=== PATIENT | female | born 1985 | race African-American/Black ===

== ENCOUNTER 2018-01-17 10:05 | Emergency (ER) | payer MEDICAID ==
--- NOTE | 2018-01-17 10:23 | ER Document Report ---
ED Medical Screen (RME) - General Chief Complaint: Abdominal Pain Stated Complaint: ABDOMINAL PAIN Time Seen by Provider: 01/17/18 10:21 Mode of Arrival: Ambulatory Information source: Patient Notes: 32-year-old female with no medical problems who presents to the emergency room with upper abdominal pain since this morning. Patient has not eaten today. She denies fever. She denies lower abdominal pain, vaginal discharge or vaginal bleeding Medicines: None Past medical history: None Allergies: None Past surgical history: Bilateral tubal ligation, TRAVEL OUTSIDE OF THE [place] IN LAST 30 DAYS: No - Related Data Allergies/Adverse Reactions: No Known Allergies Allergy (Verified 01/17/18 10:05) Past Medical History - Social History Chew tobacco use (# tins/day): No Frequency of alcohol use: None Drug Abuse: None Renal/ Medical History: Denies: Hx Peritoneal Dialysis Past Surgical History: Reports: Hx SectionComment Only: Hx Cholecystectomy - x 2 - Immunizations Hx Diphtheria, Pertussis, Tetanus Vaccination: Yes Physical Exam - Vital signs Vitals: Temp Pulse Resp BP Pulse Ox 98.2 F 82 16 141/88 H 99 01/17/18 10:10 01/17/18 10:10 01/17/18 10:10 01/17/18 10:10 01/17/18 10:10 Course - Vital Signs Vital signs: Temp Pulse Resp BP Pulse Ox 98.2 F 82 16 141/88 H 99 01/17/18 10:10 01/17/18 10:10 01/17/18 10:10 01/17/18 10:10 01/17/18 10:10 Doctor's Discharge - Discharge Referrals: GRAHAM CARROLL MD [Primary Care Provider] - Follow up as needed
[2018-01-17 10:52] LABS: ABSOLUTE LYMPHOCYTES (AUTO) 1.1 10^3/uL (0.5-4.7); ABSOLUTE MONOCYTES (AUTO) 0.2 10^3/uL (0.1-1.4); BASOPHILS % (AUTO) 0.4 % (0-2); HEMATOCRIT 40.1 % (36.0-47.0); HEMOGLOBIN 13.5 g/dL (12.0-15.5); MEAN CORPUSCULAR HGB CONC 33.7 g/dL (32.0-36.0); MEAN CORPUSCULAR VOLUME 83 fl (80-97); MONOCYTES % (AUTO) 2.9 % (3-13); PLATELET COUNT 347 10^3/uL (150-450); RED BLOOD COUNT 4.82 10^6/uL (3.72-5.28); RED CELL DISTRIBUTION WIDTH 15.1 % (11.5-14.0); SEGMENTED NEUTROPHILS % (AUTO) 81.7 % (42-78); TOTAL CELLS COUNTED % (AUTO) 100 %; WHITE BLOOD COUNT 7.4 10^3/uL (4.0-10.5)
[2018-01-17] MEDS ORDERED: MAG HYDROX/AL HYDROX/SIMETH SUSP 30 ML UDCUP PO ONE (11:07)
[2018-01-17] MEDS ORDERED: LIDOCAINE 2% VISCOUS SOLN 20 ML UDCUP PO ONE (11:07)
[2018-01-17] MEDS ORDERED: METOCLOPRAMIDE HCL ORAL SOLN 10 MG/10 ML UDCUP PO ONE (11:07)
[2018-01-17 11:09] LABS: APPEARANCE,URINE SLIGHTLY-CLOUDY; BILIRUBIN,URINE NEGATIVE (NEGATIVE); COLOR,URINE YELLOW; GLUCOSE, URINE NEGATIVE (NEGATIVE); KETONES,URINE NEGATIVE (NEGATIVE); LEUKOCYTE ESTERASE,URINE NEGATIVE (NEGATIVE); NITRITE,URINE NEGATIVE (NEGATIVE); PROTEIN,URINE NEGATIVE (NEGATIVE); URINE SPECIFIC GRAVITY 1.025; UROBILINOGEN,URINE NEGATIVE mg/dL (<2.0)
[2018-01-17 11:18] LABS: BLOOD UREA NITROGEN 7 mg/dL (7-20); CALCIUM 9.3 mg/dL (8.4-10.2); GLUCOSE 135 mg/dL (75-110)
[2018-01-17 11:19] LABS: ALANINE AMINOTRANSFERASE 25 U/L (9-52); ALBUMIN 4.4 g/dL (3.5-5.0); ALKALINE PHOSPHATASE 84 U/L (38-126); ANION GAP 14 (5-19); ASPARTATE AMINO TRANSFERASE 22 U/L (14-36); BILIRUBIN,DIRECT 0.2 mg/dL (0.0-0.4); BILIRUBIN,TOTAL 0.4 mg/dL (0.2-1.3); CARBON DIOXIDE 24 mmol/L (22-30); CHLORIDE 106 mmol/L (98-107); LIPASE 65.2 U/L (23-300); POTASSIUM 4.1 mmol/L (3.6-5.0); SODIUM 143.6 mmol/L (137-145); TOTAL PROTEIN 7.8 g/dL (6.3-8.2)
--- NOTE | 2018-01-17 11:20 | ER Document Report ---
ED General - General Chief Complaint: Abdominal Pain Stated Complaint: ABDOMINAL PAIN Time Seen by Provider: 01/17/18 10:21 Mode of Arrival: Ambulatory TRAVEL OUTSIDE OF THE [place] IN LAST 30 DAYS: No - HPI Notes: Patient is a 32-year-old female with no significant past medical history who presents to the ED complaining of epigastric pain, nausea without vomiting 2-3 months, but worsened last night. Patient states that food intake does make the pain worse, especially fried chicken per patient. The pain does not radiate. Patient states that she has not been eating or drinking anything this morning. She is urinating normally and having normal bowel movements. She has not had any vaginal discharge, odor, or bleeding. Denies any drug allergies. Denies any smoking or IV drug use. Denies any headache, fever, URI, sore throat, chest pain, palpitations, syncope, cough, shortness of breath, wheeze, dyspnea, vomiting/diarrhea, urinary retention, dysuria, hematuria, back pain, loss of control of bowel or bladder, numbness/tingling, saddle anesthesia, muscle paralysis/weakness, or rash. - Related Data Allergies/Adverse Reactions: No Known Allergies Allergy (Verified 01/17/18 10:05) Past Medical History - General Information source: Patient - Social History Smoking Status: Never Smoker Chew tobacco use (# tins/day): No Frequency of alcohol use: None Drug Abuse: None Family History: Reviewed & Not Pertinent Patient has suicidal ideation: No Patient has homicidal ideation: No Renal/ Medical History: Denies: Hx Peritoneal Dialysis Past Surgical History: Reports: Hx SectionComment Only: Hx Cholecystectomy - x 2 - Immunizations Hx Diphtheria, Pertussis, Tetanus Vaccination: Yes Review of Systems - Review of Systems -: Yes All other systems reviewed and negative Physical Exam - Vital signs Vitals: Temp Pulse Resp BP Pulse Ox 98.2 F 82 16 141/88 H 99 01/17/18 10:10 01/17/18 10:10 01/17/18 10:10 01/17/18 10:10 01/17/18 10:10 - Notes Notes: PHYSICAL EXAMINATION: GENERAL: Well-appearing, well-nourished and in no acute distress. HEAD: Atraumatic, normocephalic. EYES: Pupils equal round and reactive to light, extraocular movements intact, sclera anicteric, conjunctiva are normal. ENT: Nares patent and without discharge. oropharynx clear without exudates. No tonsilar hypertrophy or erythema. Moist mucous membranes. NECK: Normal range of motion, supple without lymphadenopathy LUNGS: Breath sounds clear to auscultation bilaterally and equal. No wheezes rales or rhonchi. HEART: Regular rate and rhythm without murmurs, rubs, gallops. ABDOMEN: Soft, nondistended abdomen. No guarding, no rebound. No masses appreciated. Normal bowel sounds present. No CVA tenderness bilaterally. + epigastric tenderness to palp, correlates with pain described. Gonzalez neg. No tenderness at McBurney. Musculoskeletal: FROM to passive/active. Strength 5+/5. Extremities: No cyanosis, clubbing, or edema b/l. Peripheral pulses 2+. Capillary refill less than 3 seconds. NEUROLOGICAL: Normal speech, normal gait. PSYCH: Normal mood, normal affect. SKIN: Warm, Dry, normal turgor, no rashes or lesions noted. Course - Re-evaluation Re-evalutation: 01/17/18 11:54 Patient is an afebrile, well-hydrated, 32-year-old female who presents to the ED with cholelithiasis and epigastric pain, suspect possible correlation with acid reflux as well. Vitals are acceptable without any significant tachycardia , tachypnea, or hypoxia. PE is otherwise unremarkable. Patient is nontoxic appearing and is tolerating p.o. without difficulties. Patient was given a GI cocktail which did improve some of her symptoms. CBC, CMP, lipase, hCG, urinalysis were unremarkable for any acute pathology. Right upper quadrant ultrasound was unremarkable for acute cholecystitis, but did note the cholelithiasis. No other labs or imaging warranted at this time based on H&P. Low suspicion/risk for acute appendicitis, bowel obstruction, acute cholecystitis, acute cholangitis, perforated diverticulitis, incarcerated hernia , pancreatitis, perforated ulcer, peritonitis, sepsis, pelvic inflammatory disease, ectopic , tubo-ovarian abscess, ovarian torsion, or other systemic emergent condition at this time. Patient is aware that her condition can change from initial presentation and she needs to monitor symptoms closely and seek medical attention if any acute changes. I did review with patient that she is a candidate for elective surgery to have her gallbladder removed and she should discuss this further with a general surgeon which I will provide information for. I will send her home with prescription for omeprazole and Carafate as well with Zofran. Conservative measures otherwise for symptoms. Avoid fatty foods. Recheck with your PCM in 3-5 days. Consider consult with a general surgeon. Return to the ED with any worsening/concerning symptoms otherwise as reviewed in discharge. Patient is in agreement. - Vital Signs Vital signs: Temp Pulse Resp BP Pulse Ox 98.2 F 82 16 141/88 H 99 01/17/18 10:10 01/17/18 10:10 01/17/18 10:10 01/17/18 10:10 01/17/18 10:10 - Laboratory Result Diagrams: 01/17/18 10:30 01/17/18 10:30 Laboratory results interpreted by me: 01/17/18 01/17/18 10:30 10:30 RDW 15.1 H Seg Neutrophils % 81.7 H Monocytes % 2.9 L Glucose 135 H Discharge - Discharge Clinical Impression: Epigastric pain Cholelithiasis Qualifiers: Cholelithiasis location: gallbladder Cholecystitis presence: without cholecystitis Biliary obstruction: without biliary obstruction Qualified Code(s) : K80.20 - Calculus of gallbladder without cholecystitis without obstruction Condition: Stable Disposition: HOME, SELF-CARE Instructions: Antinausea Medication ([facility]), Gallbladder Disease ([facility]) Additional Instructions: Maintain adequate fluid and food intake Avoid fatty foods Zofran as needed tylenol if needed Monitor for any worsening symptoms Make sure you are staying hydrated enough to urinate and have normal BM's Recheck with your PCM in 3-5 days Call general surgeon on Thursday to schedule an appointment for further evaluation and management Return to the ED with any worsening symptoms and/or development of fever, headache, chest pain, palpitations, syncope, shortness of breath, trouble breathing, abdominal pain, n/v/d, blood in stool/urine, weakness, or other worsening symptoms that are concerning to you. Prescriptions: Omeprazole 20 mg PO DAILY #30 tablet. Ondansetron [Zofran Odt 4 mg Tablet] 1 - 2 tab PO Q4H PRN #15 tab.rapdis PRN Reason: For Nausea/Vomiting Sucralfate [Carafate] 1 gm PO QID PRN #420 ml PRN Reason: Forms: Elevated Blood Pressure Referrals: JO KHAN MD [ACTIVE STAFF] - Follow up in 3-5 days GRAHAM CARROLL MD [Primary Care Provider] - Follow up in 3-5 days
--- NOTE | 2018-01-17 11:23 | RADIOLOGY REPORT (SQ) ---
EXAM DESCRIPTION: U/S ABDOMEN LIMITED W/O DOP COMPLETED DATE/TIME: 01/17/2018 11:03 am REASON FOR STUDY: upper abd pain r/o GB disease COMPARISON: None. TECHNIQUE: Dynamic and static grayscale images acquired of the abdomen and recorded on PACS. Additio vera selected color Doppler and spectral images recorded. LIMITATIONS: None. FINDINGS: PANCREAS: No masses. Visualized pancreatic duct normal caliber. LIVER: Background echogenicity is generally normal. There is a 3 cm echogenic ovoid lesion subcapsul ar right hepatic lobe which is most likely an hemangioma. LIVER VASCULATURE: Normal directional flow of the main portal vein and hepatic veins. GALLBLADDER: Cholelithiasis is present with large shadowing stone measuring up to almost 2 cm. No wa ll thickening or pericholecystic fluid, however. ULTRASOUND-DETECTED PULLIAM'S SIGN: Negative. INTRAHEPATIC DUCTS AND COMMON DUCT: CBD and intrahepatic ducts normal caliber. No filling defects. INFERIOR VENA CAVA: Normal flow. AORTA: No aneurysm. RIGHT KIDNEY: Normal size. Normal echogenicity. No solid or suspicious masses. No hydronephrosis. No calcifications. PERITONEAL AND RIGHT PLEURAL SPACE: No ascites or effusions. OTHER: No other significant findings. IMPRESSION: 1. Cholelithiasis. No evidence of acute cholecystitis based on ultrasound. 2. Probabl e liver hemangioma. Doubtful clinical significance in a patient of this age. TECHNICAL DOCUMENTATION: JOB ID: [id number] [employer]- All Rights Reserved Reading location - IP/workstation name: [email or web address]
--- NOTE | 2018-01-17 12:03 | RADIOLOGY REPORT (SQ) ---
EXAM DESCRIPTION: CHEST SINGLE VIEW COMPLETED DATE/TIME: 01/17/2018 11:42 am REASON FOR STUDY: epigastric pain COMPARISON: None. NUMBER OF VIEWS: One view. TECHNIQUE: Single frontal radiographic view of the chest acquired. LIMITATIONS: None. FINDINGS: LUNGS AND PLEURA: No opacities, masses or pneumothorax. No pleural effusion. MEDIASTINUM AND HILAR STRUCTURES: No masses. Contour normal. HEART AND VASCULAR STRUCTURES: Heart normal in size. Normal vasculature. BONES: No acute findings. HARDWARE: None in the chest. OTHER: No other significant finding. IMPRESSION: NO SIGNIFICANT RADIOGRAPHIC FINDING IN THE CHEST. TECHNICAL DOCUMENTATION: JOB ID: [id number] [employer]- All Rights Reserved Reading location - IP/workstation name: [email or web address]
[2018-01-17 12:57] VITALS: BP 138/81
== END 2018-01-17 12:50 | disposition home or self-care (01) ==
LOC: ER 10:05
DX: K80.20 Calculus of gallbladder without cholecystitis without obstruction (principal); R10.13 Epigastric pain; R11.0 Nausea; Z90.49 Acquired absence of other specified parts of digestive tract
CPT/HCPCS: 99284; 36415; 84702; 83690; 85025; 80053; 81001; 71045; 76705; J3490 ×3

== ENCOUNTER 2018-02-18 06:15 | Day surgery (SDC) | payer MEDICAID ==
[2018-02-11 09:33] LABS: HEMATOCRIT 39.2 % (36.0-47.0); HEMOGLOBIN 13.2 g/dL (12.0-15.5); MEAN CORPUSCULAR HGB CONC 33.6 g/dL (32.0-36.0); MEAN CORPUSCULAR VOLUME 83 fl (80-97); PLATELET COUNT 314 10^3/uL (150-450); RED CELL DISTRIBUTION WIDTH 14.8 % (11.5-14.0); WHITE BLOOD COUNT 6.3 10^3/uL (4.0-10.5)
[2018-02-11 09:59] LABS: ALANINE AMINOTRANSFERASE 25 U/L (9-52); ALBUMIN 3.9 g/dL (3.5-5.0); ALKALINE PHOSPHATASE 68 U/L (38-126); ANION GAP 13 (5-19); ASPARTATE AMINO TRANSFERASE 17 U/L (14-36); BILIRUBIN,DIRECT 0.2 mg/dL (0.0-0.4); BILIRUBIN,TOTAL 0.5 mg/dL (0.2-1.3); BLOOD UREA NITROGEN 8 mg/dL (7-20); CALCIUM 9.2 mg/dL (8.4-10.2); CARBON DIOXIDE 24 mmol/L (22-30); CHLORIDE 105 mmol/L (98-107); GLUCOSE 113 mg/dL (75-110); POTASSIUM 4.8 mmol/L (3.6-5.0); SODIUM 141.5 mmol/L (137-145); TOTAL PROTEIN 7.2 g/dL (6.3-8.2)
[~2018-02-18 06:15] MED LIST: CEFOXITIN SODIUM 2 GM in DEXTROSE 5%-WATER 100 ML IV PRN; LACTATED RINGERS 1000 ML IV PRN; LIDOCAINE 0.5% INJ-PF (5 MG/ML) 50 ML SDV SUBCUT PRN
[2018-02-18] MEDS ORDERED: MIDAZOLAM 2 MG/2 ML INJ ONE (06:45)
[2018-02-18] MEDS ORDERED: FENTANYL CITRATE INJ/PF 100 MCG/2 ML AMPUL ONE (06:45)
[2018-02-18] MEDS ORDERED: PROPOFOL INJ 200 MG/20 ML VIAL IV ONE (06:46)
[2018-02-18] MEDS ORDERED: ACETAMINOPHEN 1,000 MG/100 ML RTUPB IV ONE (06:46)
[2018-02-18] MEDS ORDERED: BUPIVACAINE HCL 0.5 % INJ/PF 30 ML SDV ONE (07:24)
[2018-02-18] MEDS ORDERED: SUCCINYLCHOLINE CHLORIDE INJ 200 MG/10 ML VIAL ONE (07:45)
[2018-02-18] MEDS ORDERED: NEOSTIGMINE METHYLSULFATE 10 MG/10 ML VIAL ONE (07:45)
[2018-02-18] MEDS ORDERED: ONDANSETRON HCL INJ/PF 4 MG/2 ML SDV ONE (07:45)
[2018-02-18] MEDS ORDERED: ROCURONIUM BROMIDE INJ 50 MG/5 ML VIAL IV ONE (07:45)
[2018-02-18] MEDS ORDERED: GLYCOPYRROLATE 1 MG/5 ML SYRINGE ONE (07:45)
[2018-02-18] MEDS ORDERED: DEXAMETHASONE SOD PHOSPHATE INJ 4 MG/1 ML VIAL ONE (07:45)
[2018-02-18] MEDS ORDERED: MORPHINE SULFATE 10 MG/ML INJ IV PRN (09:26)
[2018-02-18] MEDS ORDERED: PROMETHAZINE HCL INJ 25 MG/1 ML VIAL IV PRN (09:26)
[2018-02-18] MEDS ORDERED: FENTANYL CITRATE INJ/PF 100 MCG/2 ML AMPUL IV PRN ×3 (09:26)
[2018-02-18] MEDS ORDERED: DIPHENHYDRAMINE HCL 50 MG/ML VIAL IV PRN (09:26)
[2018-02-18] MEDS ORDERED: HYDROMORPHONE HCL INJ/PF 2 MG/ML AMPULE ONE (09:31)
[2018-02-18] MEDS ORDERED: HYDRALAZINE HCL INJ/PF 20 MG/1 ML SDV ONE (09:40)
[2018-02-18] MEDS ORDERED: METOPROLOL TARTRATE PF/INJ 5 MG/5 ML SDV IV ONE (10:31)
--- NOTE | 2018-02-18 10:49 | Discharge Summary ---
Discharge Summary (SDC) - Discharge Final Diagnosis: chronic cholecystitis Date of Surgery: 02/18/18 Discharge Date: 02/18/18 Condition: Stable Treatment or Instructions: Discharge home. Diet as tolerated. Activity: No lifting greater than 10 pounds 2 weeks. Follow-up with me in 7-10 days at [facility]. Okay to shower starting on Thursday. Recent 5/325 mg p.o. every 6 hours as needed pain. Zofran 4 mg p.o. 4 hours as needed nausea. Referrals: ANIBAL BLEDSOE MD [Primary Care Provider] - Discharge Diet: As Tolerated Respiratory Treatments at Home: Deep Breathing/Coughing, Incentive Spirometer Discharge Activity: No Lifting Over 10 Pounds - 2 weeks Home Care Assistance: None Needed Report the Following to Your Physician Immediately: Shortness of Breath, Nausea , Vomiting, Increase in Pain, Yellow Skin, Fever over 101 Degrees, Unusual Bleeding, Redness, Swelling, Warmth
[2018-02-18] MEDS ORDERED: KETOROLAC TROMETHAMINE INJ/PF 30 MG/1 ML SDV ONE (11:02)
--- NOTE | 2018-02-18 11:02 | Operative Report ---
Nonrecallable Operative Report DATE OF SURGERY: 02/18/18 PREOPERATIVE DIAGNOSIS: Symptomatic cholelithiasis. POSTOPERATIVE DIAGNOSIS: 1. Chronic cholecystitis. 2. Intrahepatic gallbladder. OPERATION: Laparoscopic cholecystectomy SURGEON: JO KHAN ANESTHESIA: GA TISSUE REMOVED OR ALTERED: Gallbladder COMPLICATIONS: None apparent ESTIMATED BLOOD LOSS: 30 cc PROCEDURE: Drains/implants: Surgicel in the gallbladder fossa. Procedure in detail: After informed consent was obtained, the patient was brought into the operating room and laid in the supine position. The area of the abdomen was prepped and draped in a normal sterile fashion. A supraumbilical incision was created with a 15 blade scalpel. The dissection was carried through the subcutaneous tissue using blunt means. The cicatrix was identified, grasped with a Luz clamp, and retracted upwards. The linea alba fascia was incised sharply, the abdomen was entered sharply. The balloon trocar was inserted, and pneumoperitoneum was achieved. A 5 mm subxiphoid port was placed under direct laparoscopic visualization. 2 more 5 mm ports were placed in the right upper quadrant in similar fashion. Atraumatic graspers were placed through the 5 mm ports. The gallbladder was retracted cephalad and laterally. Dissection was begun in the triangle of Calot. The cystic duct and cystic artery were fully visualized and skeletonized , seeing the liver through the triangle. This was somewhat difficult owing to the patient's large amount of chronic inflammation in the area. Once the critical view of safety was obtained, the cystic duct and cystic artery were clipped and cut with laparoscopic instruments. The gallbladder was then removed from liver using Bovie electrocautery. The dome of the gallbladder was intrahepatic, and was somewhat difficult to dissect free. After this was removed there was some bleeding noted in the gallbladder fossa. This was treated with electrocautery and Surgicel. Hemostasis was achieved. The gallbladder was placed into an Endo Catch bag and pulled out through the umbilicus. The camera was reinserted, and the hilum was inspected. The hilum was found to be free of any leakage of blood or bile. The abdomen was copiously irrigated and suctioned until the effluent was clear. The 5 mm ports were removed under direct laparoscopic visualization. The infraumbilical trocar was removed, and pneumoperitoneum was relieved. The supraumbilical fascia was closed using 0 Vicryl suture in [id number] fashion. The overlying skin was closed using 4-0 Vicryl Rapide suture in subcuticular fashion. All sponge, instrument, needle counts were correct 2. Condition: Stable.
[2018-02-18] MEDS ORDERED: OXYCODONE-ACETAMINOPHEN 5-325 MG TABLET PO PRN (11:20)
[2018-02-18 13:39] VITALS: BP 144/78
== END 2018-02-18 13:00 | disposition home or self-care (01) ==
LOC: OROUT 06:15
PROVIDERS: ATTEND Surgery
DX: K80.10 Calculus of gallbladder with chronic cholecystitis without obstruction (principal); E66.9 Obesity, unspecified; Z88.5 Allergy status to narcotic agent; Z68.41 Body mass index [BMI] 40.0-44.9, adult
CPT/HCPCS: 36415; 85027; 81025; 80076; 80048; 88304 ×2; 47562; J2250; J3490 ×4; J1100; J0694; J3010; J0360; J1885; J1170; J0330; J2405; J2704; J0131; 790

== ENCOUNTER → 2018-04-15 | Outpatient (CLI) | payer MEDICAID ==
--- NOTE | 2018-04-15 14:00 | WOMENS IMAGING REPORT ---
EXAM DESCRIPTION: U/S BREAST UNILAT COMPL COMPLETED DATE/TIME: 04/15/2018 10:30 am REASON FOR STUDY: BREAST U/S LEFT BREAST /N63.20 LEFT BREAST LUMP N63.20 UNSPECIFIED LUMP IN THE LE FT BREAST, UNSPECIFIED QUAD COMPARISON: None. TECHNIQUE: Real-time and static grayscale imaging performed of the entire left breast with additiona l imaging targeted to the area of clinical concern. Selected color Doppler images recorded. LIMITATIONS: None. FINDINGS: Patient indicates a palpable nodule in the left retroareolar region 6 o'clock position. U ltrasound of this area demonstrates a well-circumscribed hypoechoic solid nodule with minimal interna l color flow and good acoustic through transmission just deep to the skin at the 6 o'clock position. This measures 2.1 x 2 x 1 cm in size, and likely represents a left breast papilloma or retroareolar fibroadenoma. Remainder of the left breast was imaged. In the left breast laterally at the 3 o'clock position abou t 5 cm from the nipple, a hypoechoic solid nodule is present with slightly lobular borders measuring 10 x 6 by 9 mm in size. This may also represent a fibroadenoma. Left breast diagnostic mammograms a re recommended for further evaluation of this finding. IMPRESSION: Well-circumscribed hypoechoic 2.1 x 2 x 1 cm nodule in the left retroareolar region manasa elates with the palpable abnormality. This is either a small fibroadenoma or papilloma. Surgical co nsultation recommended. Incidental finding of a 2nd, small solid nodule in the left breast 3 o'clock position 5 cm from the n ipple which could also represent a small fibroadenoma. Left breast diagnostic mammogram recommended for further evaluation of this finding. BIRAD: BI-RADS 0, requires additional imaging, left breast diagnostic mammograms RECOMMENDATION: RECOMMENDED FOLLOW-UP: Left breast diagnostic mammograms are required for followup. Surgical consultation for the left breast retroareolar solid nodule COMMENT: The [employer] (ACR) has developed recommendations for screening MRI of the breasts in certain patient populations, to be used in conjunction with mammography. Breast MRI s urveillance may be appropriate for women with more than 20% lifetime risk of developing breast cancer as determined by genetic testing, significant family history of the disease, or history of mantle r adiation for Hodgkins Disease. ACR Practice Guidelines 2008. TECHNICAL DOCUMENTATION: JOB ID: [id number] [employer]- All Rights Reserved Reading location - IP/workstation name: [email or web address]
== END ==
LOC: WI 08:06
PROVIDERS: ATTEND Nurse Practitioner Family
DX: N63.42 Unspecified lump in left breast, subareolar (principal)
CPT/HCPCS: 76641; 76642

== ENCOUNTER → 2018-05-04 | Outpatient (CLI) | payer MEDICAID ==
--- NOTE | 2018-05-04 11:22 | WOMENS IMAGING REPORT ---
EXAM DESCRIPTION: BILAT DIAGNOSTIC MAMMO W/CAD COMPLETED DATE/TIME: 05/04/2018 9:52 am REASON FOR STUDY: LEFT DIAGNOSTIC MAMMO /N63.0 N63.0 UNSPECIFIED LUMP IN UNSPECIFIED BREAST COMPARISON: Left breast ultrasound 04/15/2018 TECHNIQUE: Standard craniocaudal and mediolateral oblique views of each breast recorded using digita l acquisition. Additional left breast 90 mediolateral view, left and right breast cone compression in the CC and ML O orientations LIMITATIONS: None. FINDINGS: RIGHT BREAST MASSES: No suspicious masses. CALCIFICATIONS: No new or suspicious calcifications. ARCHITECTURAL DISTORTION: None. DEVELOPING DENSITY: None. ASYMMETRY: None noted. OTHER: No other significant findings. LEFT BREAST MASSES: In the left retroareolar region, a 2 x 1 cm mammographic nodule persists in the retro areolar mammograms today, correlating with ultrasound on 04/15/2018. Again, this could represent a papillom a or fibroadenoma. This is at the 6 o'clock periareolar region. In the left breast laterally, a 2nd mammographic nodule is present about 10 mm x 6 mm in size, likely another small fibroadenoma. This was identified at ultrasound 04/15/2018 CALCIFICATIONS: No new or suspicious calcifications. ARCHITECTURAL DISTORTION: None. DEVELOPING DENSITY: None. ASYMMETRY: None noted. OTHER: No other significant finding. Read with the assistance of CAD: .[facility] - R2 Cenova Version 1.3 .[facility] - R2 Cenova Version 1.3 .[facility] - R2 Cenova Version 2.4 .[facility] - R2 Cenova Version 2.4 .[facility] - R2 Core Maker Helper Version 9.2 IMPRESSION: No mammographic evidence for malignancy right breast. Palpable abnormality left retroareolar 6 o'clock region correlates old with a well-circumscribed mamm ographic nodule. This could represent a papilloma or fibroadenoma. 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 There are scattered areas of fibroglandular density. BIRAD: 4 Suspicious. Biopsy should be considered for the left breast retroareolar nodule. RECOMMENDATION: RECOMMENDED FOLLOW UP: The biopsy of the left breast retroareolar nodule. Otherwise , 1 year follow-up mammograms recommended to document stability SPECIFIC INTERVENTION/IMAGING/CONSULTATION RECOMMENDED:Biopsy of the left breast retroareolar nodule COMMUNICATION:Patient notified by letter COMMENT: The patient has been notified of the results by letter per SA requirements. Additional no tification policies are in place for contacting patient with suspicious or incomplete findings. Quality ID #[id number]: The [employer] recommends an annual screening mammogram for women aged 40 years or over. This facility utilizes a reminder system to ensure that all patients receive reminder letters, and/or direct phone calls for appointments. This includes reminders for routine scr eening mammograms, diagnostic mammograms, or other Breast Imaging Interventions when appropriate. Th is patient will be placed in the appropriate reminder system. The [employer] (ACR) has developed recommendations for screening MRI of the breast s in certain patient populations, to be used in conjunction with mammography. Breast MRI surveillanc e may be appropriate for women with more than 20% lifetime risk of developing breast cancer as deter mined by genetic testing, significant family history of the disease, or history of mantle radiation f or Hodgkins Disease. ACR Practice Guidelines 2008. TECHNICAL DOCUMENTATION: FINDING NUMBER: (1) ASSESSMENT: (1) JOB ID: [id number] [employer]- All Rights Reserved Reading location - IP/workstation name: [email or web address]
== END ==
LOC: WI 09:14
PROVIDERS: ATTEND Nurse Practitioner Family
DX: N63.24 Unspecified lump in the left breast, lower inner quadrant (principal)
CPT/HCPCS: 77066

== ENCOUNTER 2018-05-21 11:35 | Day surgery (SDC) | payer MEDICAID ==
[~2018-05-21 11:35] MED LIST changes: +BUPIVACAINE HCL 0.25 % INJ/PF (2.5 MG/1 ML) 30 ML VIAL ONE; +CEFAZOLIN 2 GM/D5W RTU 2 GM/50 ML RTUPB IV PRN; -CEFOXITIN SODIUM 2 GM in DEXTROSE 5%-WATER 100 ML IV PRN; +DEXAMETHASONE SOD PHOSPHATE INJ 4 MG/1 ML VIAL ONE; +IBUPROFEN 800 MG in DEXTROSE 5%-WATER 250 ML IV PRN; -LIDOCAINE 0.5% INJ-PF (5 MG/ML) 50 ML SDV SUBCUT PRN; +LIDOCAINE 1% INJ-PF (10 MG/ML) 30 ML SDV ONE; +LIDOCAINE 2% INJ-PF (20 MG/ML) 2 ML AMPUL ONE; +METOCLOPRAMIDE HCL INJ/PF 10 MG/2 ML SDV ONE; +SUCCINYLCHOLINE CHLORIDE INJ 200 MG/10 ML VIAL ONE
[2018-05-21] MEDS ORDERED: CEFAZOLIN 2 GM/D5W RTU 2 GM/50 ML RTUPB IV ONE (11:43)
[2018-05-21] MEDS ORDERED: KETAMINE HCL INJ 500 MG/10 ML VIAL ONE (16:09)
[2018-05-21] MEDS ORDERED: FENTANYL CITRATE INJ/PF 100 MCG/2 ML AMPUL ONE (16:09)
[2018-05-21] MEDS ORDERED: ACETAMINOPHEN 0 MG/0 ML RTUPB IV ONE (16:10)
[2018-05-21] MEDS ORDERED: MIDAZOLAM 2 MG/2 ML INJ ONE (16:10)
[2018-05-21] MEDS ORDERED: DEXMEDETOMIDINE INJ 80 MCG/20 ML VIAL IV ONE (16:10)
[2018-05-21] MEDS ORDERED: PROPOFOL INJ 200 MG/20 ML VIAL IV ONE (16:10)
[2018-05-21] MEDS ORDERED: NALOXONE HCL INJ/PF 0.4 MG/1 ML SDV ONE (16:48)
[2018-05-21] MEDS ORDERED: FAMOTIDINE INJ/PF 20 MG/2 ML SDV IV ONE (16:56)
--- NOTE | 2018-05-21 17:44 | RADIOLOGY REPORT (SQ) ---
EXAM DESCRIPTION: CHEST SINGLE VIEW COMPLETED DATE/TIME: 05/21/2018 5:35 pm REASON FOR STUDY: BRONCHOSPASM COMPARISON: None. EXAM PARAMETERS: NUMBER OF VIEWS: One view. TECHNIQUE: Single frontal radiographic view of the chest acquired. RADIATION DOSE: NA LIMITATIONS: None. FINDINGS: LUNGS AND PLEURA: No opacities, masses or pneumothorax. No pleural effusion. MEDIASTINUM AND HILAR STRUCTURES: No masses. Contour normal. HEART AND VASCULAR STRUCTURES: Heart normal in size. Normal vasculature. BONES: No acute findings. HARDWARE: None in the chest. OTHER: No other significant finding. IMPRESSION: NO ACUTE RADIOGRAPHIC FINDING IN THE CHEST. TECHNICAL DOCUMENTATION: JOB ID: [id number] [employer]- All Rights Reserved Reading location - IP/workstation name: [email or web address]
[2018-05-21] MEDS ORDERED: MEPERIDINE HCL/PF INJ 25 MG/1 ML DISP.SYRIN IV PRN (17:55)
[2018-05-21] MEDS ORDERED: PROMETHAZINE HCL INJ 25 MG/1 ML VIAL IV PRN ×2 (17:55)
[2018-05-21] MEDS ORDERED: FENTANYL CITRATE INJ/PF 100 MCG/2 ML AMPUL IV PRN ×3 (17:55)
[2018-05-21] MEDS ORDERED: ONDANSETRON HCL INJ/PF 4 MG/2 ML SDV IV PRN (17:55)
[2018-05-21] MEDS ORDERED: DIPHENHYDRAMINE HCL 50 MG/ML VIAL IV PRN (17:55)
[2018-05-21 20:00] VITALS: BP 150/90
== END 2018-05-21 19:53 | disposition home or self-care (01) ==
LOC: OROUT 11:35
PROVIDERS: ATTEND Surgery
DX: D24.2 Benign neoplasm of left breast (principal); N64.52 Nipple discharge; Z53.9 Procedure and treatment not carried out, unspecified reason; J98.01 Acute bronchospasm; Z88.5 Allergy status to narcotic agent
CPT/HCPCS: 19110; 81025; 71045; J2250; J1100; J3010; J2765; J2310; J0330; S0020; J2704; S0028; J0690; J3490; 400; J0131; J1741; J7060

== ENCOUNTER 2018-07-02 12:44 | Day surgery (SDC) | payer MEDICAID ==
[2018-07-01 09:49] LABS: HEMATOCRIT 39.5 % (36.0-47.0); HEMOGLOBIN 13.2 g/dL (12.0-15.5); MEAN CORPUSCULAR HEMOGLOBIN 28.1 pg (27.0-33.4); MEAN CORPUSCULAR HGB CONC 33.3 g/dL (32.0-36.0); MEAN CORPUSCULAR VOLUME 84 fl (80-97); PLATELET COUNT 277 10^3/uL (150-450); RED BLOOD COUNT 4.68 10^6/uL (3.72-5.28); WHITE BLOOD COUNT 5.9 10^3/uL (4.0-10.5)
[2018-07-01 10:20] LABS: ANION GAP 10 (5-19); BLOOD UREA NITROGEN 8 mg/dL (7-20); CALCIUM 8.9 mg/dL (8.4-10.2); CARBON DIOXIDE 22 mmol/L (22-30); CHLORIDE 106 mmol/L (98-107); GLUCOSE 98 mg/dL (75-110); POTASSIUM 4.9 mmol/L (3.6-5.0)
[~2018-07-02 12:44] MED LIST changes: +ALBUTEROL SULFATE 0.083% NEB 2.5 MG/3 ML AMPUL NEB PRN; -BUPIVACAINE HCL 0.25 % INJ/PF (2.5 MG/1 ML) 30 ML VIAL ONE; -CEFAZOLIN 2 GM/D5W RTU 2 GM/50 ML RTUPB IV PRN; +CEFAZOLIN SODIUM 2 GM in DEXTROSE 5%-WATER 100 ML IV PRN; +DEXAMETHASONE SOD PHOSPHATE INJ 4 MG/1 ML VIAL IV PRN; -DEXAMETHASONE SOD PHOSPHATE INJ 4 MG/1 ML VIAL ONE; +DIPHENHYDRAMINE HCL 50 MG/ML VIAL IV PRN; -IBUPROFEN 800 MG in DEXTROSE 5%-WATER 250 ML IV PRN; +LIDOCAINE 0.5% INJ-PF (5 MG/ML) 50 ML SDV SUBCUT PRN; -LIDOCAINE 1% INJ-PF (10 MG/ML) 30 ML SDV ONE; -LIDOCAINE 2% INJ-PF (20 MG/ML) 2 ML AMPUL ONE; -METOCLOPRAMIDE HCL INJ/PF 10 MG/2 ML SDV ONE; -SUCCINYLCHOLINE CHLORIDE INJ 200 MG/10 ML VIAL ONE
[2018-07-02] MEDS ORDERED: DEXAMETHASONE SOD PHOSPHATE INJ 4 MG/1 ML VIAL ONE ×2 (14:34→18:30)
[2018-07-02] MEDS ORDERED: MIDAZOLAM 2 MG/2 ML INJ ONE ×2 (14:34→18:30)
[2018-07-02] MEDS ORDERED: DIPHENHYDRAMINE HCL 50 MG/ML VIAL ONE (14:34)
[2018-07-02] MEDS ORDERED: ALBUTEROL SULFATE 0.083% NEB 2.5 MG/3 ML AMPUL NEB ONE (17:47)
[2018-07-02] MEDS ORDERED: BUPIVACAINE HCL 0.25 % INJ/PF (2.5 MG/1 ML) 30 ML VIAL ONE (18:22)
[2018-07-02] MEDS ORDERED: LIDOCAINE 1% INJ-PF (10 MG/ML) 30 ML SDV ONE (18:22)
[2018-07-02] MEDS ORDERED: ONDANSETRON HCL INJ/PF 4 MG/2 ML SDV ONE (18:30)
[2018-07-02] MEDS ORDERED: FENTANYL CITRATE INJ/PF 100 MCG/2 ML AMPUL ONE (18:30)
[2018-07-02] MEDS ORDERED: PROPOFOL INJ 200 MG/20 ML VIAL IV ONE (18:31)
[2018-07-02] MEDS ORDERED: FENTANYL CITRATE INJ/PF 100 MCG/2 ML AMPUL IV PRN ×3 (19:07)
[2018-07-02] MEDS ORDERED: DIPHENHYDRAMINE HCL 50 MG/ML VIAL IV PRN (19:07)
[2018-07-02] MEDS ORDERED: PROMETHAZINE HCL INJ 25 MG/1 ML VIAL IV PRN (19:07)
--- NOTE | 2018-07-02 19:52 | Discharge Summary ---
Discharge Summary (SDC) - Discharge Final Diagnosis: Cystic lesion left breast, subareolar position Date of Surgery: 07/02/18 Discharge Date: 07/02/18 Forms: ASU Anesthesia D/C Instruction, Discharge POC-Surgical Service Treatment or Instructions: Discharge home. Diet as tolerated. Activity: Nonstrenuous. Wear supportive bra at all times, unless showering. Okay to shower on Thursday. No tub baths or hot tubs times 2 weeks. Ultram 50 mg p.o. every 6 hours as needed for pain. Follow-up with my office in 7-10 days. Referrals: MUSTAPHA SIMPSON FNP-C [Primary Care Provider] - JO KHAN MD [ACTIVE STAFF] - Discharge Diet: As Tolerated Respiratory Treatments at Home: Deep Breathing/Coughing, Incentive Spirometer Discharge Activity: No Lifting Over 10 Pounds Home Care Assistance: None Needed Report the Following to Your Physician Immediately: Shortness of Breath, Nausea, Vomiting, Increase in Pain, Fever over 101 Degrees, Unusual Bleeding, Redness, Swelling, Warmth, Increased Soreness, Drainage-Yellow
--- NOTE | 2018-07-02 19:57 | Operative Report ---
Nonrecallable Operative Report DATE OF SURGERY: 07/02/18 PREOPERATIVE DIAGNOSIS: 1. Left breast lesion, cystic, symptomatic. 2. Left nipple discharge. POSTOPERATIVE DIAGNOSIS: Same as above OPERATION: Left subareolar duct excision. SURGEON: JO KHAN ANESTHESIA: GA - LMA TISSUE REMOVED OR ALTERED: Left subareolar duct excision COMPLICATIONS: None apparent ESTIMATED BLOOD LOSS: Minimal PROCEDURE: Drains/implants: None. Procedure in detail: After informed consent was obtained, the patient was brought into the operating room and laid in the supine position. The area of the left breast was prepped and draped in a normal sterile fashion. A curvilinear incision was created in the inferior areolar border. This was done with a 15 blade scalpel. With sharp dissection and electrocautery, the ductal tissue beneath the left nipple and areola was completely excised. There was a cystic lesion beneath the nipple. This was excised in its entirety. Once the lesion was completely removed, the subcutaneous tissue was closed using 3-0 Vicryl suture in simple interrupted fashion. The overlying skin was closed using 4-0 Vicryl Rapide suture in subcuticular fashion. A dressing was then placed, and the procedure was concluded. All sponge, instrument, and needle counts were correct x2. Condition: Stable.
[2018-07-02] MEDS ORDERED: TRAMADOL HCL 50 MG TABLET ONE (20:17)
[2018-07-02 22:10] VITALS: BP 140/96
== END 2018-07-02 13:10 | disposition home or self-care (01) ==
LOC: OROUT 12:44
PROVIDERS: ATTEND Surgery
DX: N60.02 Solitary cyst of left breast (principal); N64.52 Nipple discharge; E66.9 Obesity, unspecified; Z68.41 Body mass index [BMI] 40.0-44.9, adult; Z88.5 Allergy status to narcotic agent
CPT/HCPCS: 36415; 85027; 81025; 80048; 88305 ×2; 88342; 19110; J2250; J0690; J1100; J1200; J3010; J2405; S0020; J2704; 400; J3490

== ENCOUNTER 2018-07-16 20:02 | Emergency (ER) | payer MEDICAID ==
[2018-07-16 20:19] VITALS: BP 129/76
--- NOTE | 2018-07-16 23:12 | ER Document Report ---
ED Wound - General Chief Complaint: Post Surgical Bleeding Stated Complaint: BREAST SURGICAL WOUND BLEED Time Seen by Provider: 07/16/18 22:43 Primary Care Provider: MUSTAPHA SIMPSON FNP-C [Primary Care Provider] - Follow up as needed Notes: Patient is a 33-year-old female complaint of bleeding from a wound over the left breast over the inferior aspect, patient had a cyst removed by Dr. Barton from the breast which had benign results, this was performed almost 2 weeks ago, patient has been seen in follow-up, Steri-Strips have come off for the most part, however today the area started bleeding. Patient has had soreness and some pain to the area but not increased today. She denies purulent drainage, fever/chills, nausea/vomiting, developing or spreading redness. She is not a diabetic. No other complaints. TRAVEL OUTSIDE OF THE [place] IN LAST 30 DAYS: No - Related Data Allergies/Adverse Reactions: hydrocodone [From Vicodin] Adverse Reaction (Verified 07/02/18 13:26) Dizzy, HODGE, N/V Past Medical History - General Information source: Patient - Social History Smoking Status: Never Smoker Frequency of alcohol use: None Drug Abuse: None Lives with: Family Family History: Reviewed & Not Pertinent - Past Medical History Cardiac Medical History: Denies: Hx Coronary Artery Disease, Hx Heart Attack, Hx Hypertension Pulmonary Medical History: Denies: Hx Asthma, Hx Bronchitis, Hx COPD, Hx Pneumonia Neurological Medical History: Denies: Hx Cerebrovascular Accident, Hx Seizures Renal/ Medical History: Denies: Hx Peritoneal Dialysis Musculoskeletal Medical History: Denies Hx Arthritis Past Surgical History: Reports: Hx SectionComment Only: Hx Cholecystectomy - x 2 - Immunizations Hx Diphtheria, Pertussis, Tetanus Vaccination: Yes Review of Systems - Review of Systems Constitutional: No symptoms reported EENT: No symptoms reported Cardiovascular: No symptoms reported Respiratory: No symptoms reported Gastrointestinal: No symptoms reported Genitourinary: No symptoms reported Female Genitourinary: No symptoms reported Musculoskeletal: No symptoms reported Skin: See HPI Hematologic/Lymphatic: No symptoms reported Neurological/Psychological: No symptoms reported Physical Exam - Vital signs Vitals: Temp Pulse Resp BP Pulse Ox 98.1 F 60 16 129/76 H 99 07/16/18 20:17 07/16/18 20:17 07/16/18 20:17 07/16/18 20:07/16/18 20:17 - Notes Notes: GENERAL: Alert, interacts well. No acute distress. HEAD: Normocephalic, atraumatic. EYES: Pupils equal, round, and reactive to light. Extraocular movements intact. ENT: Oral mucosa moist, tongue midline. Oropharynx unremarkable. Airway patent. Nares patent, no nasal septal hematoma, TM's intact. NECK: Full range of motion. Supple. Trachea midline. LUNGS: Clear to auscultation bilaterally, no wheezes, rales, or rhonchi. No respiratory distress. HEART: Regular rate and rhythm. No murmur ABDOMEN: Soft, non-tender. Non-distended. Bowel sounds present in all 4 quadrants. GENITOURINARY: Deferred EXTREMITIES: Moves all 4 extremities spontaneously. No edema, normal radial and dorsalis pedis pulses bilaterally. No cyanosis. BACK: no cervical, thoracic, lumbar midline tenderness. No saddle anesthesia, normal distal neurovascular exam. NEUROLOGICAL: Alert and oriented x3. Normal speech. [cranial nerves II through XII grossly intact]. PSYCH: Normal affect, normal mood. SKIN: Left breast in the sub-areolar area with a wide incision that is partially healed, there are 2 Steri-Strips on the far edges of this area, in the center there is a slow dripping bleed. There is no purulent discharge, significant erythema or tenderness, induration, or other abnormality noted. Skin exam otherwise unremarkable. Course - Re-evaluation Re-evalutation: Breast is bleeding but does not appear infected. Bleeding is moderate, patient has blood through the dressing that was placed on her a couple of hours ago in triage. I called and spoke with surgeon plastic extrusion operator, Dr. Guillermo, his recommendation is surgi foam or Surgicel dressing, and then close follow-up in the office. This was performed, examination and dressing was performed with Jefferson RODRÍGUEZ at bedside assisting, bleeding stopped easily with the bulky dressing with the surgifoam in place. Discussed care, expectations, follow-up, and return precautions. Patient states understanding and agreement. - Vital Signs Vital signs: Temp Pulse Resp BP Pulse Ox 98.1 F 60 16 129/76 H 99 07/16/18 20:17 07/16/18 20:17 07/16/18 20:17 07/16/18 20:17 07/16/18 20:17 Discharge - Discharge Clinical Impression: Bleeding from wound Condition: Stable Disposition: HOME, SELF-CARE Additional Instructions: I spoke with surgeon on-call for Dr. Oralia leahy, Dr. Guillermo. Recommendation was for the surgi-foam dressing and close followup. He recommended you be seen on Thursday in the office for a recheck (call Thursday). Return for any concerning symptoms including returned or increased bleeding, lightheadedness, passing out, developing fever, increased pain, discolored discharge, or any other concerning symptoms. Forms: Return to Work Referrals: MUSTAPHA SIMPSON, HINA-C [Primary Care Provider] - Follow up as needed
== END 2018-07-16 23:18 | disposition home or self-care (01) ==
LOC: ER 20:02
DX: L76.22 Postprocedural hemorrhage of skin and subcutaneous tissue following other procedure (principal); Y83.8 Other surgical procedures as the cause of abnormal reaction of the patient, or of later complication, without mention of misadventure at the time of the procedure; Z88.6 Allergy status to analgesic agent; Z90.49 Acquired absence of other specified parts of digestive tract
CPT/HCPCS: 99283

== ENCOUNTER 2018-09-18 11:09 | Emergency (ER) | payer MEDICAID ==
[2018-09-18 11:14] VITALS: BP 148/72
--- NOTE | 2018-09-18 11:57 | ER Document Report ---
ED Medical Screen (RME) - General Chief Complaint: Breast Problem Stated Complaint: BREAST PAIN Time Seen by Provider: 09/18/18 11:50 Primary Care Provider: MUSTAPHA SIMPSON FNP-C [Primary Care Provider] - Follow up as needed Notes: This 33-year-old female patient comes emergency room complaining of pain and swelling to the left breast. She had a subareolar cystic duct excision on 07/02/2018. She reports she now has a one-week history of ecchymotic swelling to the central breast, primarily inferior to the area [place]. This area is quite ecchymotic, with the inferior aspect bulging with very shiny skin. It is exquisitely tender. I have greeted and performed a rapid initial assessment of this patient. A comprehensive ED assessment and evaluation of the patient, analysis of test results and completion of the medical decision making process will be conducted by additional ED providers. TRAVEL OUTSIDE OF THE [place] IN LAST 30 DAYS: No - Related Data Allergies/Adverse Reactions: hydrocodone [From Vicodin] Adverse Reaction (Verified 09/18/18 11:45) Dizzy, HODGE, N/V Past Medical History - Social History Frequency of alcohol use: None Drug Abuse: None - Past Medical History Cardiac Medical History: Denies: Hx Coronary Artery Disease, Hx Heart Attack, Hx Hypertension Pulmonary Medical History: Denies: Hx Asthma, Hx Bronchitis, Hx COPD, Hx Pneumonia Neurological Medical History: Denies: Hx Cerebrovascular Accident, Hx Seizures Renal/ Medical History: Denies: Hx Peritoneal Dialysis Musculoskeltal Medical History: Denies Hx Arthritis Past Surgical History: Reports: Hx Breast Surgery - left cyst removal, Hx Section - x3, Hx Cholecystectomy, Hx Tubal Ligation - Immunizations Hx Diphtheria, Pertussis, Tetanus Vaccination: Yes History of Influenza Vaccine for 03/2017 - 08/2017 Season: No Physical Exam - Vital signs Vitals: Temp Pulse Resp BP Pulse Ox 98.4 F 87 18 148/72 H 99 09/18/18 11:13 09/18/18 11:13 09/18/18 11:13 09/18/18 11:13 09/18/18 11:13 Course - Vital Signs Vital signs: Temp Pulse Resp BP Pulse Ox 98.4 F 87 18 148/72 H 99 09/18/18 11:13 09/18/18 11:13 09/18/18 11:13 09/18/18 11:13 09/18/18 11:13 Doctor's Discharge - Discharge Referrals: MUSTAPHA SIMPSON FNP-C [Primary Care Provider] - Follow up as needed
[2018-09-18 12:43] LABS: APPEARANCE,URINE SLIGHTLY-CLOUDY; BILIRUBIN,URINE NEGATIVE (NEGATIVE); COLOR,URINE YELLOW; GLUCOSE, URINE NEGATIVE (NEGATIVE); KETONES,URINE NEGATIVE (NEGATIVE); LEUKOCYTE ESTERASE,URINE NEGATIVE (NEGATIVE); NITRITE,URINE NEGATIVE (NEGATIVE); PROTEIN,URINE NEGATIVE (NEGATIVE); URINE SPECIFIC GRAVITY 1.024
== END 2018-09-18 13:40 | disposition left against medical advice (07) ==
LOC: ER 11:09
DX: N64.4 Mastodynia (principal); Z88.6 Allergy status to analgesic agent; Z90.49 Acquired absence of other specified parts of digestive tract; Z98.51 Tubal ligation status
CPT/HCPCS: 81001; 99281

== ENCOUNTER 2018-09-18 22:22 | Emergency (ER) | payer MEDICAID ==
[2018-09-19 01:32] LABS: VENOUS BLOOD BASE EXCESS 1.4 mmol/L; VENOUS BLOOD HCO3 26.1 mmol/L (20-32); VENOUS BLOOD PCO2 41.2 mmHg (35-63); VENOUS BLOOD PH 7.42 (7.30-7.42)
[2018-09-19 01:41] LABS: ABSOLUTE BASOPHILS # (AUTO) 0.1 10^3/uL (0.0-0.2); ABSOLUTE EOSINOPHILS # (AUTO) 0.2 10^3/uL (0.0-0.6); ABSOLUTE LYMPHOCYTES (AUTO) 2.5 10^3/uL (0.5-4.7); ABSOLUTE MONOCYTES (AUTO) 0.7 10^3/uL (0.1-1.4); ABSOLUTE NEUT (AUTO) 6.5 10^3/uL (1.7-8.2); BASOPHILS % (AUTO) 0.6 % (0-2); EOSINOPHILS % (AUTO) 2.3 % (0-6); HEMATOCRIT 36.4 % (36.0-47.0); HEMOGLOBIN 12.2 g/dL (12.0-15.5); LYMPHOCYTES % (AUTO) 24.9 % (13-45); MEAN CORPUSCULAR HEMOGLOBIN 28.6 pg (27.0-33.4); MEAN CORPUSCULAR HGB CONC 33.5 g/dL (32.0-36.0); MEAN CORPUSCULAR VOLUME 85 fl (80-97); MONOCYTES % (AUTO) 6.5 % (3-13); PLATELET COUNT 290 10^3/uL (150-450); RED BLOOD COUNT 4.27 10^6/uL (3.72-5.28); RED CELL DISTRIBUTION WIDTH 14.6 % (11.5-14.0); SEGMENTED NEUTROPHILS % (AUTO) 65.7 % (42-78); TOTAL CELLS COUNTED % (AUTO) 100 %
[2018-09-19 01:48] LABS: ALANINE AMINOTRANSFERASE 20 U/L (9-52); ALBUMIN 3.7 g/dL (3.5-5.0); ALKALINE PHOSPHATASE 77 U/L (38-126); ANION GAP 7 (5-19); ASPARTATE AMINO TRANSFERASE 19 U/L (14-36); BILIRUBIN,DIRECT 0.2 mg/dL (0.0-0.4); BILIRUBIN,TOTAL 0.7 mg/dL (0.2-1.3); BLOOD UREA NITROGEN 10 mg/dL (7-20); CALCIUM 9.1 mg/dL (8.4-10.2); CARBON DIOXIDE 23 mmol/L (22-30); CHLORIDE 107 mmol/L (98-107); GLUCOSE 98 mg/dL (75-110); POTASSIUM 3.7 mmol/L (3.6-5.0); SODIUM 137.4 mmol/L (137-145); TOTAL PROTEIN 6.8 g/dL (6.3-8.2)
--- NOTE | 2018-09-19 02:06 | ER Document Report ---
ED General - General Chief Complaint: Wound Infection Stated Complaint: BREAST INJURY Time Seen by Provider: 09/19/18 00:38 Primary Care Provider: JO BARTON MD [ACTIVE STAFF] - Follow up as needed Notes: Patient is a 33-year-old female without chronic medical problems, had a breast cyst removal in June [address] Barton who presents with 1 week of progressively worsening swelling and pain below the left breast area over the incisional site. Described as a throbbing, severe, constant pain that has been worsening over the last 1 week. Came to the emergency department earlier today, left without being seen. States tonight that she was at home the pain was becoming increasingly intense and she had an abrupt, spontaneous rupture of the area with drainage of purulent material. Patient states that it produced a copious amount of purulent material and has continued to drain since that time. She does note that since it has ruptured to has caused significant pain relief. She denies associated fever or constitutional symptoms. She does state that the site still is somewhat moderately painful. She has not seen Dr. Barton or her primary doctor regarding today's concerns. TRAVEL OUTSIDE OF THE [place] IN LAST 30 DAYS: No - Related Data Allergies/Adverse Reactions: hydrocodone [From Vicodin] Adverse Reaction (Verified 09/18/18 22:30) Dizzy, HODGE, N/V Past Medical History - General Information source: Patient - Social History Smoking Status: Never Smoker Frequency of alcohol use: None Drug Abuse: None Family History: Reviewed & Not Pertinent Patient has suicidal ideation: No Patient has homicidal ideation: No - Past Medical History Cardiac Medical History: Denies: Hx Coronary Artery Disease, Hx Heart Attack, Hx Hypertension Pulmonary Medical History: Denies: Hx Asthma, Hx Bronchitis, Hx COPD, Hx Pneumonia Neurological Medical History: Denies: Hx Cerebrovascular Accident, Hx Seizures Renal/ Medical History: Denies: Hx Peritoneal Dialysis Musculoskeletal Medical History: Denies Hx Arthritis Past Surgical History: Reports: Hx Breast Surgery - left cyst removal, Hx Section - x3, Hx Cholecystectomy, Hx Tubal Ligation - Immunizations Hx Diphtheria, Pertussis, Tetanus Vaccination: Yes Review of Systems - Review of Systems Notes: Constitutional: Negative for fever. HENT: Negative for sore throat. Eyes: Negative for visual changes. Cardiovascular: Negative for chest pain. Respiratory: Negative for shortness of breath. Gastrointestinal: Negative for abdominal pain, vomiting or diarrhea. Genitourinary: Negative for dysuria. Musculoskeletal: Negative for back pain. Skin: Positive for breast abscess and cellulitis Neurological: Negative for headaches, weakness or numbness. 10 point ROS negative except as marked above and in HPI. Physical Exam - Vital signs Vitals: Temp Pulse Resp BP Pulse Ox 99 F 78 18 138/67 H 100 09/18/18 22:38 09/18/18 22:38 09/18/18 22:38 09/18/18 22:38 09/18/18 22:38 Interpretation: Normal Notes: PHYSICAL EXAMINATION: GENERAL: Well-appearing, well-nourished and in no acute distress. HEAD: Atraumatic, normocephalic. EYES: Pupils equal round and reactive to light, extraocular movements intact, sclera anicteric, conjunctiva are normal. ENT: nares patent, oropharynx clear without exudates. Moist mucous membranes. NECK: Normal range of motion, supple without lymphadenopathy LUNGS: Breath sounds clear to auscultation bilaterally and equal. No wheezes rales or rhonchi. HEART: Regular rate and rhythm without murmurs Breast: There is an opening approximately 1 inch in length along the inferior aspect of the left breast overlying incisional surgical scar. Palpation area with some mild induration to the area although no further expression of purulent material. ABDOMEN: Soft, nontender, normoactive bowel sounds. No guarding, no rebound. No masses appreciated. EXTREMITIES: Normal range of motion, no pitting or edema. No cyanosis. NEUROLOGICAL: No focal neurological deficits. Moves all extremities sp ontaneously and on command. PSYCH: Normal mood, normal affect. SKIN: Warm, Dry, normal turgor, no rashes or lesions noted. Course - Re-evaluation Re-evalutation: 09/19/18 03:33 Presentation of a an inferior left breast abscess that has spontaneously drained. Area appears to not have any remaining purulent fluid collection. Lab s and breast ultrasound unremarkable. Patient is otherwise well in appearance, vitals within normal limits. I have discussed with Dr. Barton the surgeon application spec who is also follow this patient in the past. He advises initiation of doxycycline and outpatient follow-up. I do agree that this is a reasonable plan. At this time will discharge with return precautions and follow-up recommendations. Verbal discharge instructions given a the bedside and opportunity for questions given. Medication warnings reviewed. Patient is in agreement with this plan and has verbalized understanding of return precautions and the need for surgical follow-up in the next 24-72 hours. - Vital Signs Vital signs: Temp Pulse Resp BP Pulse Ox 99 F 78 20 154/98 H 100 09/18/18 22:38 09/18/18 22:38 09/19/18 02:00 09/19/18 01:52 09/19/18 02:00 - Laboratory Result Diagrams: 09/19/18 01:15 09/19/18 01:15 Laboratory results interpreted by me: 09/19/18 09/19/18 01:15 01:15 RDW 14.6 H Lactic Acid < 0.5 L Discharge - Discharge Clinical Impression: Left breast abscess, Cellulitis of left breast Condition: Good Disposition: HOME, SELF-CARE Additional Instructions: The rash is likely due to infection of your skin. You need to take the antibiotics as prescribed. Do not stop even if the rash goes away until you have completed all the antibiotics. Dr. Barton would like to see you in the office early next week. Please contact the office on Thursday to schedule an appointment. You should also return if you develop fevers with temperature greater than 101, persistent vomiting, worsening pain, or have any other sy mptoms that are concerning to you. Prescriptions: Doxycycline Monohydrate 100 mg PO BID #20 capsule Forms: Return to Work Referrals: JO BRATON MD [ACTIVE STAFF] - Follow up as needed
--- NOTE | 2018-09-19 02:18 | RADIOLOGY REPORT (SQ) ---
EXAM DESCRIPTION: US BREAST UNILATERAL LIMITED COMPLETED DATE/TME: 09/19/2018 00:59 CLINICAL HISTORY: 33 years Female, breast abscess Comparison: 05/04/18 LIMITATIONS: None. FINDINGS: In an area of symptomatology, 6:00 position of the left breast, no evidence of abscess or drainable fluid collection. No current ultrasound evidence of suspicious mass. IMPRESSION: No acute or suspicious sonographic findings in an area of symptomatology of the left breast. Recommend correlation bilateral diagnostic mammogram. BI-RADS: Zero, requires additional imaging
[2018-09-19] MEDS ORDERED: DOXYCYCLINE HYCLATE 100 MG TABLET PO ONE (03:28)
[2018-09-19 03:50] VITALS: BP 138/86
== END 2018-09-19 03:54 | disposition home or self-care (01) ==
LOC: ER 22:22
DX: N61.1 Abscess of the breast and nipple (principal); Z98.890 Other specified postprocedural states; Z90.49 Acquired absence of other specified parts of digestive tract; Z98.51 Tubal ligation status
CPT/HCPCS: 99283; 36415; 87040; 84703; 85025; 80053; 82803; 83605; 76642; J3490